=== PATIENT | female | born 1975 | race African-American/Black ===

== ENCOUNTER 2023-08-05 19:03 | Emergency (ER) | payer MEDICAID, OTHER ==
[~2023-08-05] VITALS: Ht 175.3 cm; Wt 81.0 kg
[~2023-08-05 19:03] MED LIST: TRAZADONE
[2023-08-05 19:12] VITALS: TEMP 98.7
[2023-08-05] MEDS ORDERED: IBUPROFEN 600 MG TABLET PO ONE (19:30)
[2023-08-05] MEDS ORDERED: ACETAMINOPHEN 500 MG TABLET PO ONE (19:30)
[2023-08-05 20:51] VITALS: BP 135/84; PULSE 75; RESP 18
[2023-08-05] MEDS ORDERED: ACET-66 PO (20:57)
[2023-08-05] MEDS ORDERED: IBUP-1554 PO (20:57)
== END 2023-08-05 22:15 | disposition home or self-care (01) ==
LOC: EMS 19:07
DX: S83.92XA Sprain of unspecified site of left knee, initial encounter (principal); S90.32XA Contusion of left foot, initial encounter; F10.20 Alcohol dependence, uncomplicated; Y90.9 Presence of alcohol in blood, level not specified; W01.0XXA Fall on same level from slipping, tripping and stumbling without subsequent striking against object, initial encounter; Y93.89 Activity, other specified; Y92.89 Other specified places as the place of occurrence of the external cause; Y99.8 Other external cause status
CPT/HCPCS: 99284

== ENCOUNTER 2025-03-03 20:07 | Emergency (ER) | payer OTHER ==
[~2025-03-03] VITALS: Ht 182.9 cm; Wt 72.3 kg
[~2025-03-03 20:07] MED LIST changes: +ACET-66 PO; +IBUP-1554 PO
[2025-03-03 20:33] VITALS: BP 138/80; PULSE 85; RESP 16; O2SAT 100
[2025-03-03] MEDS: TraMADol HCL 50 MG TABLET PO ONE (22:51)
[2025-03-03] MEDS ORDERED: TRAM50TA5 PO (23:50)
== END 2025-03-03 23:58 | disposition home or self-care (01) ==
LOC: EMS 20:10
DX: S93.402A Sprain of unspecified ligament of left ankle, initial encounter (principal); F12.90 Cannabis use, unspecified, uncomplicated; F10.90 Alcohol use, unspecified, uncomplicated; W01.0XXA Fall on same level from slipping, tripping and stumbling without subsequent striking against object, initial encounter; Y93.89 Activity, other specified; Y92.89 Other specified places as the place of occurrence of the external cause; Y99.8 Other external cause status; Y90.9 Presence of alcohol in blood, level not specified
CPT/HCPCS: 99284